=== PATIENT | male | born 1990 | race Caucasian/White ===

== ENCOUNTER 2016-12-18 23:25 | Emergency (ER) | payer BC ==
[~2016-12-18] VITALS: Ht 162.6 cm; Wt 97.5 kg
[~2016-12-18 23:25] MED LIST: HYDR-3011 PO
[2016-12-18 23:32] VITALS: Ht 162.6 cm; Wt 97.5 kg
--- NOTE | 2016-12-19 02:42 | RADRPT ---
PROCEDURE: Chest. CLINICAL INDICATION: Chest pain. TECHNIQUE: Single frontal view of the chest was obtained. COMPARISON: 03/10/2016. FINDINGS: The cardiac silhouette is within normal limits. The aortic arch is unremarkable. There is no focal consolidation, vascular congestion or pleural effusion. There is no pneumothorax. IMPRESSION: No evidence for active cardiopulmonary disease. .Casey Scott MD, Date Time Electronically viewed and signed by .Casey Scott MD, on 12/19/2016 02:42 .T/
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
--- NOTE | 2016-12-19 02:43 | RADRPT ---
PROCEDURE: Lumbar spine. CLINICAL INDICATION: Low back pain. TECHNIQUE: Three views including AP, lateral and cone-down lateral view of the lumbar spine were obtained. COMPARISON: None. FINDINGS: There is no acute fracture or subluxation. Lumbar vertebral body heights and alignment are within n ormal limits. Intervertebral disk spaces are within normal limits. The posterior elements are unre markable. IMPRESSION: No evidence of fracture or subluxation. .Casey Scott MD, MD Date Time Electronically viewed and signed by .Casey Scott MD, on 12/19/2016 02:42 .T/
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
--- NOTE | 2016-12-19 02:49 | RADRPT ---
PROCEDURE: Thoracic spine. CLINICAL INDICATION: Back pain. TECHNIQUE: Three views including AP and lateral views were obtained. COMPARISON: None. FINDINGS: There is no acute fracture or subluxation. Thoracic vertebral body heights and alignment are within normal limits. Intervertebral disk spaces are within normal limits. IMPRESSION: No evidence of fracture or subluxation. .Casey Scott MD, MD Date Time Electronically viewed and signed by .Casey Scott MD, on 12/19/2016 02:49 .T/
--- NOTE | 2016-12-19 02:50 | RADRPT ---
PROCEDURE: Left shoulder. CLINICAL INDICATION: Pain. TECHNIQUE: 2 views of the left shoulder. COMPARISON: None. FINDINGS: There is no fracture, dislocation or bone destruction. The joint spaces are within normal limits. Bone mineralization is within normal limits. There is no radiopaque foreign body or abnormal calcif ication. IMPRESSION: Unremarkable left shoulder. .Casey Scott MD, MD Date Time Electronically viewed and signed by .Casey Scott MD, on 12/19/2016 02:50 .T/
[2016-12-19] MEDS ORDERED: HYDR-906 PO (02:56)
[2016-12-19 03:10] VITALS: BP 129/79; PULSE 77; RESP 20; TEMP 98.3
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
== END 2016-12-19 03:12 | disposition home or self-care (01) ==
LOC: FTE 23:25
DX: S39.92XA Unspecified injury of lower back, initial encounter (principal); S49.91XA Unspecified injury of right shoulder and upper arm, initial encounter; S49.92XA Unspecified injury of left shoulder and upper arm, initial encounter; R07.9 Chest pain, unspecified; V49.49XA Driver injured in collision with other motor vehicles in traffic accident, initial encounter
CPT/HCPCS: 71010; 72040; 72072; 72100; 73030

== ENCOUNTER 2017-04-07 02:34 | Emergency (ER) | payer BC ==
[~2017-04-07] VITALS: Ht 172.7 cm; Wt 99.5 kg
[~2017-04-07 02:34] MED LIST changes: +HYDR-906 PO
[2017-04-07 02:35] VITALS: Ht 172.7 cm; Wt 99.5 kg
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
--- NOTE | 2017-04-07 04:10 | RADRPT ---
PROCEDURE: CT Lumbar Spine without contrast. CLINICAL INDICATION: Back pain. TECHNIQUE: CT scan of the lumbar spine [facility] Contiguous axial images were obtained without intravenous contrast. Coronal and sagittal refor matted images were also obtained. Images were reviewed on the PACS workstation. One or more of the following dose reduction techniques were used: - Automated exposure control. - Adjustment of the mA and/or kV according to patient size. - Use of iterative reconstruction technique. Exam CTD/vol = 32.53 mGy. Total exam DLP = 1250.80 mGy-cm. COMPARISON: None. FINDINGS: Lumbar vertebral body heights and alignment are within normal limits. There is no acute fracture or subluxation. At T12-L1, the disk height is within normal limits. There is no central canal or neural foraminal s tenosis. At L1-L2, the disk height is within normal limits. There is no central canal or neural foraminal st enosis. At L2-L3, the disk height is within normal limits. There is no central canal or neural foraminal st enosis. At L3-L4, the disk height is within normal limits. There is no central canal or neural foraminal st enosis. At L4-L5, there is mild loss of disk height. There is a large posterior disk protrusion/extrusion m easuring approximately 7 mm AP by 19 mm transverse by 12 mm sagittal. There is moderate central britt l and severe bilateral lateral recess stenosis, greater on the left. There is mild left neural fora zelda stenosis. At L5-S1, the disk height is within normal limits. There is no central canal or neural foraminal st enosis. There is no paraspinal mass or collection. IMPRESSION: No acute fracture or subluxation. At L4-L5, there is a large posterior disk protrusion/extrusion resulting in moderate central canal a nd severe bilateral lateral recess stenosis, greater on the left. There is mild left neural foramin al stenosis. Further evaluation can be made by MRI if clinically warranted. .Casey Scott MD, Date Time Electronically viewed and signed by .Casey Scott MD, MD on 04/07/2017 04:09 .T/
[2017-04-07] MEDS ORDERED: IBUP-1542 PO (04:15)
[2017-04-07] MEDS ORDERED: CYCL-319 PO (04:15)
[2017-04-07] MEDS ORDERED: HYDR-906 PO (04:15)
== END 2017-04-07 04:30 | disposition home or self-care (01) ==
LOC: FTE 02:34
DX: M51.37 Other intervertebral disc degeneration, lumbosacral region (principal); V49.49XA Driver injured in collision with other motor vehicles in traffic accident, initial encounter
CPT/HCPCS: 72131